=== PATIENT | female | born 1995 | race American Indian/Alaskan Native ===

== ENCOUNTER 2016-10-14 23:30 | Emergency (ER) | payer MEDICAID ==
[2016-10-15 00:08] LABS: Basophils % (Auto) 1.6 % (0.0-1.8); Eosinophils % (Auto) 1.7 % (0.0-4.3); Hematocrit 42.7 % (30.3-42.9); Hemoglobin 13.5 gm/dl (10.1-14.3); Mean Corpuscular HGB Conc 32 % (30-34); Mean Corpuscular Volume 82 fl (79-97); Platelet Count 195 K/mm3 (140-440); Red Blood Count 5.22 M/mm3 (3.65-5.03); Red Cell Distribution Width 16.3 % (13.2-15.2); White Blood Count 6.4 K/mm3 (4.5-11.0)
[2016-10-15 00:23] LABS: Mean Corpuscular Hemoglobin 26 pg (28-32)
[2016-10-15 00:28] LABS: Alanine Aminotransferase 11 units/L (7-56); Albumin 4.1 g/dL (3.9-5); Albumin/Globulin Ratio 1.1 %; Alkaline Phosphatase 87 units/L (35-129); Anion Gap 16 mmol/L; Bilirubin,Total 0.2 mg/dL (0.1-1.2); Blood Urea Nitrogen 12 mg/dL (7-17); Calcium 9.4 mg/dL (8.4-10.2); Carbon Dioxide 25 mmol/L (22-30); Chloride 98.7 mmol/L (98-107); Glucose 98 mg/dL (65-100); Potassium 3.5 mmol/L (3.6-5.0); Sodium 136 mmol/L (137-145); Total Protein 7.7 g/dL (6.3-8.2)
[2016-10-15 00:41] LABS: Lipase 34 units/L (13-60)
--- NOTE | 2016-10-15 03:38 | Emergency Department Report ---
ED Female HPI - General Chief complaint: Vaginal Bleeding Stated complaint: VAGINAL BLEEDING,CRAMPING Time Seen by Provider: 10/15/16 03:29 Source: patient, family Mode of arrival: Ambulatory Limitations: No Limitations - History of Present Illness Initial comments: This is an 20-year-old female. She is previously unknown to me. She is 2, para 1. Last menstrual period is mid July. Her [facility] doctor is with "my [facility]." The patient presents to the ER with vaginal spotting, and cramping. This has been present for approximately 24 hours. No right lower quadrant pain. No nausea, vomiting or diarrhea. No irritative or obstructive urinary symptoms. Mild vaginal bleeding currently. MD Complaint: vaginal bleeding -: Gradual Location: labia Radiation: non-radiating Severity: mild Quality: cramping Consistency: intermittent Improves with: none Worsens with: none Are you Now?: Yes Associated Symptoms: vaginal bleeding - Related Data Home Medications Medication Instructions Recorded Confirmed Last Taken No Known Home Medications [No 12/10/15 12/10/15 Unknown Reported Home Medications] Allergies Allergy/AdvReac Type Severity Reaction Status Date / Time No Known Allergies Allergy Verified 12/10/15 13:18 ED Review of Systems ROS: Stated complaint: VAGINAL BLEEDING,CRAMPING Other details as noted in HPI Constitutional: denies: fever, malaise Eyes: denies: vision change ENT: denies: epistaxis Respiratory: denies: cough Cardiovascular: denies: chest pain Gastrointestinal: abdominal pain Genitourinary: abnormal menses Musculoskeletal: denies: back pain Skin: denies: lesions Neurological: denies: weakness Psychiatric: denies: anxiety ED Past Medical Hx - Past Medical History Previous Medical History?: Yes Hx Hypertension: No Hx Seizures: No Hx Asthma: No Additional medical history: Umbilical Hernia - Surgical History Past Surgical History?: No - Social History Smoking Status: Never Smoker Substance Use Type: None - Medications Home Medications: Home Medications Medication Instructions Recorded Confirmed Last Taken Type No Known Home Medications [No 12/10/15 12/10/15 Unknown History Reported Home Medications] ED Physical Exam - General Limitations: No Limitations General appearance: alert, in no apparent distress - Head Head exam: Present: atraumatic, normocephalic - Eye Eye exam: Present: normal appearance, EOMI. Absent: nystagmus - ENT ENT exam: Present: normal exam, normal orophraynx, mucous membranes moist, normal external ear exam - Neck Neck exam: Present: normal inspection, full ROM. Absent: tenderness, meningismus - Respiratory Respiratory exam: Present: normal lung sounds bilaterally. Absent: respiratory distress, wheezes, rales, rhonchi, stridor, decreased breath sounds - Cardiovascular Cardiovascular Exam: Present: regular rate, normal rhythm, normal heart sounds. Absent: bradycardia, tachycardia, irregular rhythm, systolic murmur, diastolic murmur, rubs, gallop - GI/Abdominal GI/Abdominal exam: Present: soft, normal bowel sounds. Absent: distended, tenderness, guarding, rebound, rigid, pulsatile mass - Extremities Exam Extremities exam: Present: normal inspection, full ROM, normal capillary refill. Absent: tenderness, pedal edema, joint swelling, calf tenderness - Back Exam Back exam: Present: normal inspection, full ROM. Absent: tenderness, CVA tenderness (R), CVA tenderness (L), muscle spasm, paraspinal tenderness, vertebral tenderness - Neurological Exam Neurological exam: Present: alert, oriented X3, normal gait, other (Extraocular movements intact. Tongue midline. No facial droop. Facial sensation intact to light touch in the V1, V2, V3 distribution bilaterally. 5 and 5 strength in 4 extremities.. Sensation is intact to light touch in 4 extremities.). Absent : motor sensory deficit - Psychiatric Psychiatric exam: Present: normal affect, normal mood - Skin Skin exam: Present: warm, dry, intact, normal color. Absent: rash ED Course Vital Signs 10/14/16 10/15/16 10/15/16 23:41 03:09 04:35 Temperature 98.2 F Pulse Rate 86 108 H Respiratory 18 20 Rate Blood Pressure 120/108 122/74 Blood Pressure 126/85 [Right] O2 Sat by Pulse 100 100 Oximetry 10/15/16 10/15/16 10/15/16 04:39 04:40 05:16 Temperature Pulse Rate 96 H 136 H Respiratory 18 18 18 Rate Blood Pressure Blood Pressure 122/74 121/83 [Right] O2 Sat by Pulse 99 99 99 Oximetry 10/15/16 10/15/16 05:37 05:40 Temperature Pulse Rate 112 H Respiratory 14 Rate Blood Pressure 122/74 Blood Pressure 115/79 [Right] O2 Sat by Pulse 100 99 Oximetry - Reevaluation(s) Reevaluation #1: 10/15/16 04:33 Differential diagnosis: Subchorionic hemorrhage, urinary tract infection, miscarriage, threatened miscarriage Assessment and plan: 20-year-old female who has a reported outpatient history of sonographically confirmed intrauterine , with lower abdominal cramping and reported vaginal bleeding. She is afebrile with reassuring vital signs, there is no right lower quadrant tenderness, rebound or guarding. Urinalysis, ultrasound, type and screen pending. 10/15/16 05:55 Reevaluation #2: 10/15/16 05:53 quantitative hCG 1500. Ultrasound does not demonstrate discrete intrauterine . I have discussed the case with the covering aircraft refueler, Dr. William. He has reviewed his group's medical records. He does not have any record of the patient having an ultrasound or a demonstrated intrauterine . Does not recommend methotrexate at this time. Recommend conservative management. Patient to return in 48 hours for repeat quantitative hCG, physical examination, possible ultrasound. Patient minimally tachycardic, at times her heart rate decreases to the 80s, it seems to go up when she is provoked and anxious. Her belly soft and nontender, with no rebound, guarding or peritoneal signs. Given the possibility of early ectopic , I will defer gynecologic examination at this time. rh status is pending at this time Dr Ahmadi to follow it up and order rhogham if necessary 10/15/16 05:57 ED Medical Decision Making - Lab Data Result diagrams: 10/14/16 23:52 10/14/16 23:52 Vital Signs 10/14/16 10/15/16 23:41 03:09 Temperature 98.2 F Pulse Rate 86 108 H Respiratory 18 20 Rate Blood Pressure 120/108 Blood Pressure 126/85 [Right] O2 Sat by Pulse 100 100 Oximetry Lab Results 10/14/16 10/14/16 10/14/16 Range/Units 23:52 23:52 23:52 WBC 6.4 (4.5-11.0) K/mm3 RBC 5.22 H (3.65-5.03) M/mm3 Hgb 13.5 (10.1-14.3) gm/dl Hct 42.7 (30.3-42.9) % MCV 82 (79-97) fl MCH 26 L (28-32) pg MCHC 32 (30-34) % RDW 16.3 H (13.2-15.2) % Plt Count 195 (140-440) K/mm3 Lymph % (Auto) 31.8 (13.4-35.0) % [place] % (Auto) 6.9 (0.0-7.3) % Eos % (Auto) 1.7 (0.0-4.3) % Baso % (Auto) 1.6 (0.0-1.8) % Lymph # 2.0 (1.2-5.4) K/mm3 [place] # 0.4 (0.0-0.8) K/mm3 Eos # 0.1 (0.0-0.4) K/mm3 Baso # 0.1 (0.0-0.1) K/mm3 Seg Neutrophils % 58.0 (40.0-70.0) % Seg Neutrophils # 3.7 (1.8-7.7) K/mm3 Sodium 136 L (137-145) mmol/L Potassium 3.5 L (3.6-5.0) mmol/L Chloride 98.7 (98-107) mmol/L Carbon Dioxide 25 (22-30) mmol/L Anion Gap 16 mmol/L BUN 12 (7-17) mg/dL Creatinine 0.8 (0.7-1.2) mg/dL Estimated GFR > 60 ml/min BUN/Creatinine Ratio 15.00 % Glucose 98 (65-100) mg/dL Calcium 9.4 (8.4-10.2) mg/dL Total Bilirubin 0.2 (0.1-1.2) mg/dL AST 17 (5-40) units/L ALT 11 (7-56) units/L Alkaline Phosphatase 87 (35-129) units/L Total Protein 7.7 (6.3-8.2) g/dL Albumin 4.1 (3.9-5) g/dL Albumin/Globulin Ratio 1.1 % Lipase 34 (13-60) units/L HCG, Qual Positive (Negative) - Radiology Data Radiology results: report reviewed, image reviewed No injury during is identified. Uterus has a normal appearance. There is a solid mass on the left ovary which measures 2.5 cm. Ectopic not excluded. Critical care attestation.: If time is entered above; I have spent that time in minutes in the direct care of this critically ill patient, excluding procedure time. ED Disposition Clinical Impression: Miscarriage Disposition: DISCHARGED TO HOME OR SELFCARE Is pt being admited?: No Does the pt Need Aspirin: No Condition: Stable Instructions: Threatened Miscarriage (ED) Additional Instructions: Rest and avoid heavy lifting. Return in 2 days for repeat blood test (quantitative hCG), physical examination. Do not engage in sex, do not engage in heavy lifting. Symptoms may be coming from early miscarriage versus early ectopic . Return to the ER right away with new pain, worsened pain, migration of pain, fevers or chills, intractable nausea or vomiting, severe abdominal pain, dizziness, lightheadedness, chest pain, shortness of breath. Referrals: CITLALI BALLARD JR, MD [Primary Care Provider] - 3-5 Days [facility] [Provider Group] - 3-5 Days
[2016-10-15] MEDS ORDERED: TYLENOL PO ONE (04:31)
[2016-10-15 04:34] LABS: Bilirubin,Urine NEG (Negative); Blood,Urine LG (Negative); Ketones,Urine 20 mg/dL (Negative); Leukocyte Esterase,Urine NEG (Negative); Mucus,Urine 2+ /HPF; Nitrite,Urine NEG (Negative); Urobilinogen,Urine < 2.0 mg/dL (<2.0)
[2016-10-15 04:37] LABS: RBC,Urine > 182.0 /HPF (0.0-6.0)
[2016-10-15] MEDS ORDERED: NACL 0.9% 1000 ML 2,000 ML ONE (04:52)
[2016-10-15] MEDS ORDERED: NACL 0.9% 1000 ML 1,000 ML IV ONE ×2 (04:55)
--- NOTE | 2016-10-15 05:16 | Ultrasound Report ---
FINAL REPORT PROCEDURE: US OB \T\lt; = 14 WEEKS FETUS TECHNIQUE: Real-time transabdominal sonography of the uterus, placenta, amniotic fluid, adnexa, and fetus was performed with image documentation. Measurements were obtained to determine age/size. M-mode Doppler was used to document heartbeat. CPT 04803 HISTORY: vag bleed COMPARISON: No prior studies are available for comparison. FINDINGS: The uterus measures 8.5 x 5 4 x 7.3 centimeters. The endometrial pattern measures 11 millimeters. No gestational sac is identified. The right ovary size is 3.1 x 1.7 x 2.1 centimeters. The left ovary size is 2.5 x 1.9 x 1.9 centimeters. There is a solid mass on the left ovary this measures 25 millimeters. The findings may indicate multiple etiologies including early , failure. Ectopic is not excluded on the basis of this study. Further evaluation with followup examinations which should include serial beta HCG levels and repeat ultrasound within 14 days would be appropriate. IMPRESSION: The uterus has a normal appearance. No evidence of a gestational sac at this time. There is a solid mass on the left ovary this measures 25 millimeters. The right ovary is normal. The findings may indicate multiple etiologies including early , failure. Ectopic is not excluded. Followup examinations will be essential as discussed.
--- NOTE | 2016-10-15 05:17 | Ultrasound Report ---
FINAL REPORT PROCEDURE: US OB \T\lt; = 14 WEEKS FETUS transvaginal TECHNIQUE: Real-time transabdominal and transvaginal sonography of the uterus, placenta, amniotic fluid, adnexa, and fetus was performed with image documentation. Measurements were obtained to determine age/size. M-mode Doppler was used to document heartbeat. CPT 34350 HISTORY: vag bleed COMPARISON: No prior studies are available for comparison. FINDINGS: The uterus measures 8.5 x 5 4 x 7.3 centimeters. The endometrial pattern measures 11 millimeters. No gestational sac is identified. The right ovary size is 3.1 x 1.7 x 2.1 centimeters. The left ovary size is 2.5 x 1.9 x 1.9 centimeters. There is a solid mass on the left ovary this measures 25 millimeters. The findings may indicate multiple etiologies including early , failure. Ectopic is not excluded on the basis of this study. Further evaluation with followup examinations which should include serial beta HCG levels and repeat ultrasound within 14 days would be appropriate. IMPRESSION: The uterus has a normal appearance. No evidence of a gestational sac at this time. There is a solid mass on the left ovary this measures 25 millimeters. The right ovary is normal. The findings may indicate multiple etiologies including early , failure. Ectopic is not excluded. Followup examinations will be essential as discussed. PROCEDURE: TECHNIQUE: HISTORY: COMPARISON: FINDINGS: IMPRESSION:
[2016-10-15 05:36] LABS: Alanine Aminotransferase 10 units/L (7-56); Albumin 4.2 g/dL (3.9-5); Albumin/Globulin Ratio 1.2 %; Alkaline Phosphatase 89 units/L (35-129); Bilirubin,Total 0.2 mg/dL (0.1-1.2); Total Protein 7.8 g/dL (6.3-8.2)
[2016-10-15 05:37] LABS: Bilirubin,Direct < 0.2 mg/dL (0-0.2)
[2016-10-15 07:03] VITALS: BP 98/66
== END 2016-10-15 07:10 | disposition home or self-care (01) ==
LOC: ED 23:30
DX: O03.9 Complete or unspecified spontaneous abortion without complication (principal); Z3A.00 Weeks of gestation of pregnancy not specified
CPT/HCPCS: 36415; 76801; 76817; 80053; 80074; 81001; 83690; 84702; 84703; 85025; 86900; 86901; 96360; 96361; 99285; J7030